=== PATIENT | male | born 1995 | race Caucasian/White ===

== ENCOUNTER 2016-08-16 00:05 | Emergency (ER) | payer OTHER ==
[2016-08-16 00:44] VITALS: BP 141/88
--- NOTE | 2016-08-16 02:10 | EDM.PDOC ---
ED HPI GENERAL MEDICAL PROBLEM - General Chief Complaint: Head Injury Stated Complaint: HIT HEAD Time Seen by Provider: 08/16/16 01:37 Source of Information: Reports: Patient, Family History Limitations: Reports: No Limitations - History of Present Illness INITIAL COMMENTS - FREE TEXT/NARRATIVE: This patient was playing football when he and another patient collided and bumped heads together. There was no loss of consciousness. He's been acting normally since then according to family and friends. They thought his pupils might be dilated a little bit so brought him in for evaluation. Patient denies any head pain. - Related Data Allergies Allergy/AdvReac Type Severity Reaction Status Date / Time No Known Allergies Allergy Verified 08/16/16 00:49 Home Meds: Home Meds NK [No Known Home Meds] 08/16/16 [History] Past Medical History Musculoskeletal History: Reports: Fracture Social & Family History - Tobacco Use Smoking Status *Q: Never Smoker - Caffeine Use Caffeine Use: Reports: None - Recreational Drug Use Recreational Drug Use: No ED ROS GENERAL - Review of Systems Review Of Systems: ROS reveals no pertinent complaints other than HPI. ED EXAM, HEAD INJURY - Physical Exam Exam: See Below Exam Limited By: No Limitations General Appearance: Alert, WD/WN, No Apparent Distress Head: Atraumatic, Normocephalic Eyes: Bilateral Eye: EOMI, Normal Inspection, PERRL Ears: Normal TMs Nose: Normal Inspection Throat/Mouth: Normal Oropharynx Neck: Non-Tender, Full Range of Motion, Normal Alignment, Normal Inspection Neurologic: mammographer II-XII nml As Tested, No Motor/Sensory Deficits, Alert, Normal Mood/Affect, Oriented x 3 Course - Vital Signs Last Recorded V/S: Last Vital Signs Temp 37.3 C 08/16/16 00:51 Pulse 98 08/16/16 00:51 Resp 16 08/16/16 00:51 BP 141/88 H 08/16/16 00:51 Pulse Ox 98 08/16/16 00:51 Departure - Departure Time of Disposition: 02:09 Disposition: Home, Self-Care 01 Condition: Fair Clinical Impression: Minor head injury - Discharge Information Instructions: Head Injury, Adult Referrals: PCP,None [Primary Care Provider] - Forms: ED Department Discharge Additional Instructions: This appears to be just a minor head injury with no evidence of a concussion. No further treatment is needed but see the supplied head injury sheet. Return to the ER or call 911 for any problems.
== END 2016-08-16 02:18 | disposition home or self-care (01) ==
LOC: JP.ED 00:05
DX: S09.90XA Unspecified injury of head, initial encounter (principal); W51.XXXA Accidental striking against or bumped into by another person, initial encounter; Y93.61 Activity, american tackle football
CPT/HCPCS: 99283